=== PATIENT | female | born 1960 | race Caucasian/White ===

== ENCOUNTER 2018-08-19 14:58 | Emergency (ER) | payer MEDICARE, MEDICAID ==
[~2018-08-19] VITALS: Ht 175.3 cm; Wt 60.0 kg
[~2018-08-19 14:58] MED LIST: LOSA50TA14 PO; METR500T PO; PANT40TA3 PO; SUCR1TAB33 PO; VERA40TA PO
--- NOTE | 2018-08-19 15:18 | NUR ---
pt bib remsa for worsening depression and failure to thrive. per ems, pt is unable to afford gas or food and cannot care for self at this time. pt states she would like to "lay in bed and pass away." pt +etoh odor. Addendum: 08/19/18 at 1521 by [email or web address] pt bib remsa for worsening depression and failure to thrive. per ems, pt is unable to afford gas or food and cannot care for self at this time. pt states she would like to "lay in bed and pass away." pt +etoh odor. pt shows flight of ideas and continues to ramble during assessment. pt confused on why ems was called and why she is here, even though she is the one that called ems. pt states she would like help, but is unable to describe what kind of help, and is making multiple phone calls. pt states, "I cannot go home and someone needs to take care of me or she will commit suicide." while typing this note, pt verbalized plan to go home and connect a hose to her car so she would if we send her home. pt connected to monitor. vss. awaiting edmd assessment.
[2018-08-19] MEDS ORDERED: LORazepam 1MG TABLET PO ONE (16:00)
[2018-08-19 16:33] LABS: BASOPHILS # (AUTO) 0.09 x10^3/uL (0-0.1); BASOPHILS % (AUTO) 1 % (0-1); EOSINOPHILS % (AUTO) 6 % (1-7); LYMPHOCYTES # (AUTO) 2.02 x10^3/uL (1-3.4); LYMPHOCYTES % (AUTO) 29 % (22-44); MD NO; MEAN CORPUSCULAR HEMOGLOBIN 22.3 pg (27.0-34.8); MEAN CORPUSCULAR HGB CONC 30.8 g/dL (32.4-35.8); MEAN CORPUSCULAR VOLUME 72.4 fL (80-100); MEAN PLATELET VOLUME 9.3 fL (7.4-10.4); MONOCYTES # (AUTO) 0.61 x10^3/uL (0.2-0.8); MONOCYTES % (AUTO) 9 % (2-9); NEUTROPHILS # (AUTO) 3.75 x10^3/uL (1.8-6.8); NEUTROPHILS % (AUTO) 55 % (42-75); PLATELET COUNT 272 x10^3/uL (130-400); RED BLOOD COUNT 4.48 x10^6/uL (3.82-5.3); RED CELL DISTRIBUTION WIDTH 21.4 % (9.6-15.2)
[2018-08-19 16:43] LABS: ALANINE AMINOTRANSFERASE 36 U/L (12-78); ANION GAP 9 mmol/L (5-15); CALCIUM 9.1 mg/dL (8.5-10.1); CHLORIDE 107 mmol/L (98-107); CREATININE 0.64 mg/dL (0.55-1.02); SALICYLATE LEVEL 9.5 mg/dL (2.8-20.0)
[2018-08-19 16:45] LABS: ALKALINE PHOSPHATASE 96 U/L (45-117); BILIRUBIN,TOTAL 0.6 mg/dL (0.2-1.0); TOTAL PROTEIN 7.7 g/dL (6.4-8.2)
[2018-08-19] MEDS ORDERED: LORazepam 1MG TABLET ONE ×2 (16:45→22:41)
--- NOTE | 2018-08-19 16:45 | NUR ---
Provided with meal tray.
[2018-08-19 16:46] LABS: ACETAMINOPHEN < 2 mcg/mL (10-30)
[2018-08-19 17:15] LABS: AMPHETAMINE SCREEN, URINE Negative (Negative); BARBITURATE SCREEN, URINE Negative (Negative); BENZODIAZEPINE SCREEN, URINE Negative (Negative); CANNABINOID SCREEN, URINE Positive (Negative); COCAINE SCREEN, URINE Negative (Negative); METHADONE SCREEN, URINE Negative (Negative); OPIATE SCREEN, URINE Negative (Negative)
--- NOTE | 2018-08-19 17:48 | NUR ---
Patient denies SI at this time. Patient expressing concerns about not having food at home and having difficulty seeing television. MD aware.
--- NOTE | 2018-08-19 18:00 | NUR ---
MD at bedside evaluating patient.
[2018-08-19 18:49] VITALS: BP 154/77
--- NOTE | 2018-08-19 18:50 | NUR ---
Belongings locked up securely.
[2018-08-19] MEDS ORDERED: DIPHENHYDRAMINE 25 MG CAPSULE ONE (19:27)
[2018-08-19] MEDS ORDERED: DIPHENHYDRAMINE 25 MG CAPSULE PO PRN (19:30)
--- NOTE | 2018-08-19 19:40 | NUR ---
Patient requesting meds for sleep. Ranjan admin.
--- NOTE | 2018-08-19 20:33 | NUR ---
Provided with pillow and blankets. No other needs.
--- NOTE | 2018-08-19 21:30 | NUR ---
Transferred to hospital bed.
--- NOTE | 2018-08-19 21:53 | NUR ---
Patient transferred to room 39. Report to Mamta Saucedo RN.
--- NOTE | 2018-08-19 22:02 | NUR ---
ASSUMED CARE OF PATIENT. REPORT GIVEN FROM WILI MEDEROS DR IN ROOM. SITTER AT DOOR. WILL CONTINUE TO MONITOR.
[2018-08-19] MEDS ORDERED: LORazepam 1MG TABLET PO PRN (22:30)
[2018-08-19] MEDS ORDERED: POTASSIUM CHLORIDE 20 MEQ TAB.ER.PRT PO ONE (22:30)
[2018-08-19] MEDS ORDERED: POTASSIUM CHLORIDE 20 MEQ TAB.ER.PRT ONE (22:41)
--- NOTE | 2018-08-19 22:59 | NUR ---
PT FEELING ANXIOUS. PT GIVEN ATIVAN. PT REQUESTING EAR PLUGS TO SLEEP DUE TO NOISE. PT GIVEN EAR PLUGS. OKAYED WITH CARA GALLEGOS RN RADIATION ONCOLOGY. SITTER AT DOOR. NO ACUTE DISTRESS NOTED. WILL CONTINUE TO MONITOR.
--- NOTE | 2018-08-19 23:53 | NUR ---
PT RSETING IN ROOM. REGULAR RESP. NO ACUTE DISTRESS NOTED. SITTER AT DOOR. WILL CONTINUE TO MONITOR.
--- NOTE | 2018-08-20 00:48 | NUR ---
Pt ambulated to bathroom. now resting in room. no acute distress noted. sitter at door. will continue to monitor.
--- NOTE | 2018-08-20 01:25 | NUR ---
REPORT TO HERNAN RASHEED
== END 2018-08-20 03:53 ==
LOC: ED 17:53 → UNDOADMIN 18:57 → EDIP 18:57 → ED 08-20 03:53
DX: F33.2 Major depressive disorder, recurrent severe without psychotic features (principal); F10.229 Alcohol dependence with intoxication, unspecified; R45.851 Suicidal ideations; I10 Essential (primary) hypertension; F41.1 Generalized anxiety disorder; Z90.710 Acquired absence of both cervix and uterus; Y90.9 Presence of alcohol in blood, level not specified
CPT/HCPCS: 36415; 80053; 80307; 80329; 84443; 85025; 99285; Q0163; G0480

== ENCOUNTER 2018-08-19 23:46 | Inpatient (IN) | payer MEDICARE, MEDICAID ==
[~2018-08-19] VITALS: Ht 175.3 cm; Wt 58.7 kg
[2018-08-20] MEDS ORDERED: ACETAMINOPHEN 325 MG TABLET PO PRN (01:00)
[2018-08-20] MEDS ORDERED: DOCUSATE 100 MG CAPSULE PO PRN (01:00)
[2018-08-20] MEDS ORDERED: LORazepam 1MG TABLET PO PRN (02:00)
[2018-08-20] MEDS: PLEASE ENTER HEIGHT AND WEIGHT MC SCH ×2 (02:00→10:00)
[2018-08-20 02:15] VITALS: BP 156/73
[2018-08-20 07:39] VITALS: BP 169/97
[2018-08-20] MEDS ORDERED: NICOTINE 14MG/24 HR PATCH.TD24 TD SCH (11:00)
[2018-08-20 11:01] VITALS: BP 167/101
[2018-08-20] MEDS: AMLODIPINE 2.5 MG TABLET PO SCH ×2 (13:00→21:12)
[2018-08-20] MEDS: NICOTINE 7 MG/24 HR PATCH.TD24 TD SCH (13:00)
[2018-08-20 19:15] VITALS: BP 130/76
[2018-08-20] MEDS: QUETIAPINE 25MG TABLET PO SCH (21:12)
[2018-08-20] MEDS: DULOXETINE 30 MG CAPSULE.DR PO SCH (21:12)
[2018-08-21 07:44] VITALS: BP 148/89
[2018-08-21] MEDS: DULOXETINE 30 MG CAPSULE.DR PO SCH (08:20)
[2018-08-21] MEDS: AMLODIPINE 2.5 MG TABLET PO SCH ×2 (08:20→20:49)
[2018-08-21] MEDS: NICOTINE 7 MG/24 HR PATCH.TD24 TD SCH (08:21)
[2018-08-21 14:14] LABS: MICROSCOPIC NOT IND
[2018-08-21 14:27] LABS: CULTURE INDICATED? NO
[2018-08-21 16:49] LABS: CHOL/HDL RATIO 2.1; LDL/HDL RATIO 0.9 (0.5-3.0)
[2018-08-21 19:50] VITALS: BP 155/83
[2018-08-21] MEDS: QUETIAPINE 25MG TABLET PO SCH (20:50)
[2018-08-22 07:17] VITALS: BP 147/90
[2018-08-22] MEDS: AMLODIPINE 2.5 MG TABLET PO SCH (08:29)
[2018-08-22] MEDS: NICOTINE 7 MG/24 HR PATCH.TD24 TD SCH (12:14)
== END 2018-08-22 15:53 | disposition left against medical advice (07) | DRG 885 ==
LOC: 3E 08-20 01:38
PROVIDERS: ADMIT Psychiatry & Neurology Psychosomatic Medicine; ATTEND Psychiatry & Neurology Psychosomatic Medicine
DX: F33.2 Major depressive disorder, recurrent severe without psychotic features (principal); F43.10 Post-traumatic stress disorder, unspecified; G90.2 Horner's syndrome; H54.40 Blindness, one eye, unspecified eye; Z53.21 Procedure and treatment not carried out due to patient leaving prior to being seen by health care provider; H54.61 Unqualified visual loss, right eye, normal vision left eye; F17.200 Nicotine dependence, unspecified, uncomplicated
CPT/HCPCS: 36415; 71045; 80061; 81003; 93005; 92523-GN; Q0177